=== PATIENT | female | born 1950 | race Two or more races ===

== ENCOUNTER 2018-07-14 14:41 | Inpatient (IN) | payer OTHER ==
[~2018-07-14] VITALS: Ht 177.8 cm; Wt 82.1 kg
[2018-07-14] MEDS ORDERED: NORVASC2.5 M1 (15:30)
[2018-07-14] MEDS ORDERED: TOPROL XL50 M1 (15:30)
[2018-07-14] MEDS ORDERED: HYZAAR 100-12.1 EACH (15:30)
[2018-07-14] MEDS ORDERED: ALDACTONE25 MG (15:31)
[2018-07-14] MEDS ORDERED: PREVACID30 MG (15:31)
[2018-07-14] MEDS ORDERED: BIOTIN10000 MCG (15:32)
[2018-07-14] MEDS ORDERED: MAGNESIUM400 M1 (15:33)
[2018-07-14] MEDS ORDERED: SUPER C (15:34)
[2018-07-14] MEDS ORDERED: PROBIOTIC1 EAC1 (15:34)
[2018-07-21] MEDS ORDERED: LOSARTAN POTAS100 MG PO (09:32)
[2018-07-21] MEDS ORDERED: TOPROL XL50 M1 PO (09:32)
[2018-07-21] MEDS ORDERED: SPIRONOLACTONE25 MG PO (09:32)
[2018-07-21] MEDS ORDERED: AMLODIPINE BESYL5 MG PO (09:32)
== END 2018-07-21 13:01 | disposition home or self-care (01) | DRG 392 ==
LOC: ER 14:41 → MEDI 21:54 → SEC-K 21:54 → MEDI 07-15 02:14
PROC: BW21ZZZ Computerized Tomography (CT Scan) of Abdomen and Pelvis (ICD-10-PCS; principal; 2018-07-15)
DX: K57.32 Diverticulitis of large intestine without perforation or abscess without bleeding (principal); E87.6 Hypokalemia; I10 Essential (primary) hypertension; K21.9 Gastro-esophageal reflux disease without esophagitis; G62.89 Other specified polyneuropathies; Z88.0 Allergy status to penicillin

== ENCOUNTER 2019-07-07 09:25 | Day surgery (SDC) | payer OTHER ==
[~2019-07-07 09:25] MED LIST: ALDACTONE25 MG; AMLODIPINE BESYL5 MG PO; BIOTIN10000 MCG; HYZAAR 100-12.1 EACH; LOSARTAN POTAS100 MG PO; MAGNESIUM400 M1; NORVASC2.5 M1; PREVACID30 MG; PROBIOTIC1 EAC1; SPIRONOLACTONE25 MG PO; SUPER C; TOPROL XL50 M1; TOPROL XL50 M1 PO
== END 2019-07-07 15:25 | disposition home or self-care (01) ==
LOC: AMB-ENDOS 09:25
DX: K62.1 Rectal polyp (principal); K64.8 Other hemorrhoids

== ENCOUNTER 2020-09-08 12:30 | Inpatient (IN) | payer OTHER ==
[~2020-09-08] VITALS: Ht 177.8 cm; Wt 77.1 kg
[2020-09-18] MEDS ORDERED: HYOSCYAMINE0.125 M1 SL (14:38)
[2020-09-18] MEDS ORDERED: OXYC1TAB9 PO (14:39)
== END 2020-09-18 16:59 | disposition home or self-care (01) | DRG 331 ==
LOC: O/R 09-15 09:57 → SURH 09-15 09:57
PROVIDERS: ADMIT Surgery; ATTEND Surgery
PROC: 0DBN4ZZ Excision of Sigmoid Colon, Percutaneous Endoscopic Approach (ICD-10-PCS; 2020-09-15)
PROC: 0DJD8ZZ Inspection of Lower Intestinal Tract, Via Natural or Artificial Opening Endoscopic (ICD-10-PCS; 2020-09-15)
PROC: 0DTP4ZZ Resection of Rectum, Percutaneous Endoscopic Approach (ICD-10-PCS; principal; 2020-09-15 11:00)
DX: K57.30 Diverticulosis of large intestine without perforation or abscess without bleeding (principal); I11.9 Hypertensive heart disease without heart failure; E87.6 Hypokalemia

== ENCOUNTER 2021-06-06 06:14 | Day surgery (SDC) | payer OTHER ==
[~2021-06-06 06:14] MED LIST changes: +HYOSCYAMINE0.125 M1 SL; +OXYC1TAB9 PO
== END 2021-06-06 10:00 | disposition home or self-care (01) ==
LOC: AMB-ENDOS 06:14
PROVIDERS: ATTEND Surgery
DX: D12.4 Benign neoplasm of descending colon (principal); K64.8 Other hemorrhoids; Z20.822 Contact with and (suspected) exposure to COVID-19